=== PATIENT | male | born 1975 | race African-American/Black ===

== ENCOUNTER 2017-07-06 21:10 | Emergency (ER) | payer MEDICAID ==
[~2017-07-06] VITALS: Ht 180.3 cm; Wt 82.0 kg
[2017-07-07] MEDS ORDERED: KETOROLAC 30MG/ML VIAL IM ONE (01:30)
[2017-07-07 04:42] LABS: CLARITY URINE CLEAR (CLEAR); COLOR URINE YELLOW (YELLOW); KETONES URINE NEGATIVE (NEGATIVE); LEUKOCYTE ESTERASE URINE NEGATIVE (NEGATIVE); NITRITE URINE NEGATIVE (NEGATIVE); OCCULT BLOOD URINE NEGATIVE (NEGATIVE); PROTEIN URINE NEGATIVE (NEGATIVE); SPECIFIC GRAVITY URINE 1.019 (1.005-1.030)
[2017-07-07 05:32] VITALS: BP 115/74
== END 2017-07-07 05:36 | disposition home or self-care (01) ==
LOC: ER 22:24
DX: N43.3 Hydrocele, unspecified (principal); R20.2 Paresthesia of skin; F17.200 Nicotine dependence, unspecified, uncomplicated; F12.10 Cannabis abuse, uncomplicated; Z98.1 Arthrodesis status
CPT/HCPCS: 76870; 81003; 93970; 93976; 96372; 99285; J1885; Z7610

== ENCOUNTER 2018-05-29 12:22 | Emergency (ER) | payer MEDICAID ==
[~2018-05-29] VITALS: Ht 180.3 cm; Wt 84.0 kg
[~2018-05-29 12:22] MED LIST: GABA-531 PO; TRAM50TA3 MT
[2018-05-29] MEDS ORDERED: IBUP-2030 MT (13:08)
[2018-05-29] MEDS ORDERED: ONDANSETRON HCL 4MG/2ML INJ IV ONE (15:00)
[2018-05-29] MEDS ORDERED: MORPHINE SULFATE 4 MG/ML CPJ (NOT FOR IM USE) IV ONE (15:00)
[2018-05-29 15:38] LABS: BASOPHILS % 0.5 % (0.0-2.0); EOSINOPHILS % 2.8 % (0.0-5.0); HEMATOCRIT. 40.7 % (42.0-52.0); HEMOGLOBIN. 13.7 g/dL (14.0-18.0); LYMPHOCYTES % 42.8 % (20.0-50.0); MEAN CORPUSCULAR HEMOGLOBIN 31.7 pg (28.0-32.0); MEAN CORPUSCULAR VOLUME 94.3 fL (80.0-94.0); MONOCYTES % 8.3 % (2.0-8.0); NEUTROPHILS % 45.6 % (40.0-76.0); PLATELET 172 x1000/uL (130-400); RED BLOOD CELL COUNT 4.31 mill/uL (4.7-6.1); RED CELL DISTRIBUTION WIDTH 14.8 % (11.6-14.6)
[2018-05-29 15:40] LABS: CHLORIDE 109 mEq/L (98-107)
[2018-05-29 15:41] LABS: INR 1.1; PARTIAL THROMBOPLASTIN TIME 27.3 sec (23.4-31.0); PROTHROMBIN TIME 10.8 sec (9.1-11.1)
[2018-05-29] MEDS ORDERED: LORAZEPAM 2MG/ML CPJ IV ONE (15:45)
[2018-05-29 18:24] LABS: CLARITY URINE CLEAR (CLEAR); COLOR URINE YELLOW (YELLOW); KETONES URINE NEGATIVE (NEGATIVE); LEUKOCYTE ESTERASE URINE NEGATIVE (NEGATIVE); NITRITE URINE NEGATIVE (NEGATIVE); OCCULT BLOOD URINE NEGATIVE (NEGATIVE); PH URINE 8.5 (4.5-8.0); PROTEIN URINE NEGATIVE (NEGATIVE); SPECIFIC GRAVITY URINE 1.006 (1.005-1.030)
[2018-05-29 19:01] VITALS: BP 112/72
== END 2018-05-29 19:14 | disposition home or self-care (01) ==
LOC: ER 13:41
DX: M54.9 Dorsalgia, unspecified (principal); R32 Unspecified urinary incontinence; R20.2 Paresthesia of skin; Z98.890 Other specified postprocedural states; Z88.5 Allergy status to narcotic agent; Z88.6 Allergy status to analgesic agent
CPT/HCPCS: 36415; 72141; 72146; 72148; 80053; 81003; 85025; 85610; 85730; 96374; 96375; 99284; J2060; J2270; J2405

== ENCOUNTER 2021-04-09 14:31 | Emergency (ER) | payer MEDICAID, OTHER ==
[~2021-04-09] VITALS: Ht 180.3 cm; Wt 84.0 kg
[~2021-04-09 14:31] MED LIST changes: -GABA-531 PO; +GABA-532 PO; +IBUP-2030 MT
[2021-04-09] MEDS ORDERED: KETOROLAC 30MG/ML VIAL IV STA (20:30)
[2021-04-09 20:55] LABS: BASOPHILS % 0.7 % (0.0-2.0); HEMATOCRIT. 39.3 % (42.0-52.0); LYMPHOCYTES % 50.4 % (20.0-50.0); MEAN CORPUSCULAR HEMOGLOBIN 31.6 pg (28.0-32.0); MEAN CORPUSCULAR VOLUME 95.4 fL (80.0-94.0); MEAN PLATELET VOLUME 8.8 fl (7.4-10.4); MONOCYTES % 9.8 % (2.0-8.0); NEUTROPHILS % 34.1 % (40.0-76.0); PLATELET 187 x1000/uL (130-400); RED BLOOD CELL COUNT 4.12 mill/uL (4.7-6.1); RED CELL DISTRIBUTION WIDTH 14.6 % (11.6-14.6)
[2021-04-09 21:04] LABS: CHLORIDE 112 mEq/L (98-107)
[2021-04-09] MEDS ORDERED: LORAZEPAM 2MG/ML CPJ IV ONE (23:00)
[2021-04-10 00:45] VITALS: BP 132/65
== END 2021-04-10 01:17 | disposition admitted as inpatient to this hospital (09) ==
LOC: ER 14:31
DX: M54.2 Cervicalgia (principal); Z98.890 Other specified postprocedural states; Z88.5 Allergy status to narcotic agent
CPT/HCPCS: 36415; 72141; 72146; 72148; 80053; 85025; 96374; 96375; 99284; J1885; J2060